=== PATIENT | male | born 1945 | race Two or more races ===

== ENCOUNTER 2020-08-15 18:18 | Emergency (ER) | payer MEDICARE ==
[~2020-08-15] VITALS: Ht 172.7 cm; Wt 83.9 kg
[~2020-08-15 18:18] MED LIST: ALPR0.5T8 PO; ASPI-610 PO; ENOX80DI SQ; FINA5TAB3 PO; LOSA-22 PO; [UNRECOGNIZED DRUG - REMARK]
--- NOTE | 2020-08-15 18:20 | NUR ---
pt walked into er co " being drunk", pt took tequilla x 4 days, pt very emotional, crying, pt denies any cp or sob at this time.
[2020-08-15] MEDS ORDERED: IV NORMAL SALINE 1000 ML BAG IV ONE ×2 (18:30→22:00)
[2020-08-15] MEDS ORDERED: FOLIC ACID 1 MG in IV DEXTROSE 5% 50 ML IV SCH (18:45)
[2020-08-15] MEDS ORDERED: THIAMINE HCL INJ 100 MG in IV DEXTROSE 5% 50 ML IV SCH (18:45)
[2020-08-15] MEDS ORDERED: THIAMINE HCL 200 MG/2 ML VIAL ONE (18:46)
[2020-08-15] MEDS ORDERED: FOLIC ACID 5 MG/ML VIAL IV ONE (18:47)
[2020-08-15 18:54] LABS: BASOPHILS # (AUTO) 0.1 K/uL (0.0-8.0)
[2020-08-15 18:58] LABS: BASOPHILS % (AUTO) 0.6 % (0.0-2.0); EOSINOPHILS # (AUTO) 0.1 K/uL (0.0-0.7); EOSINOPHILS % (AUTO) 0.4 % (0.0-7.0); HEMOGLOBIN 17.4 g/dL (12.5-16.3); LYMPHOCYTES # (AUTO) 8.9 K/uL (20.0-40.0); LYMPHOCYTES % (AUTO) 68.5 % (20.5-51.5); MEAN CORPUSCULAR HEMOGLOBIN 29.8 uug (23.8-33.4); MEAN CORPUSCULAR HGB CONC 34 g/dL (32.5-36.3); MEAN CORPUSCULAR VOLUME 88.9 fL (73.0-96.2); MONOCYTES # (AUTO) 1.4 K/uL (2.0-10.0); MONOCYTES % (AUTO) 10.7 % (0.0-11.0); NEUTROPHILS # (AUTO) 2.6 K/uL (1.8-8.9); NEUTROPHILS % (AUTO) 19.8 % (38.5-71.5); PLATELET COUNT (AUTO) 165 K/uL (152-348); RED BLOOD CELL COUNT(AUTO) 5.84 MIL/uL (4.06-5.63)
[2020-08-15 19:01] LABS: CARBON DIOXIDE 19 mmol/L (21-32); CHLORIDE 109 mmol/L (98-107); ETHANOL 278 MG/DL (0-0); GLUCOSE 132 mg/dL (74-106); POTASSIUM 3.2 mmol/L (3.5-5.1); UREA NITROGEN, BLOOD 21 mg/dL (7-18)
[2020-08-15 19:07] LABS: ALANINE AMINOTRANSFERASE 23 U/L (16-63); ALKALINE PHOSPHATASE 84 U/L (50-136); ASPARTATE AMINOTRANSFERASE 24 U/L (15-37); BILIRUBIN,DIRECT 0.1 mg/dL (0.0-0.2); BILIRUBIN,TOTAL 0.3 mg/dL (0.2-1.0); TOTAL PROTEIN, SERUM 7.6 g/dL (6.4-8.2)
[2020-08-15 19:08] LABS: ACETAMINOPHEN < 2.0 ug/mL (10-30)
[2020-08-15] MEDS ORDERED: MAG HYDROX/AL HYDROX/SIMETH 30 ML LIQUID UDC PO ONE (19:30)
[2020-08-15] MEDS ORDERED: IV D5 1/2 NS 1000 ML 1,000 ML IV ONE (19:30)
[2020-08-15] MEDS ORDERED: LORAZEPAM 2 MG/1 ML VIAL IV ONE ×2 (19:30→20:45)
[2020-08-15 19:51] LABS: *BILIRUBIN,URIN NEGATIVE (NEGATIVE); *BLOOD, URINE 1+ (NEGATIVE); *CLARITY,URINE CLEAR (CLEAR); *COLOR,URINE YELLOW (YELLOW); *KETONES,URINE 1+ (NEGATIVE); *UROBILINOGEN,URINE 0.2 E.U./dl (NORMAL); LEUKOCYTE ESTERASE ,URINE NEGATIVE (NEGATIVE); NITRITE, URINE NEGATIVE (NEGATIVE); UGLUCOSE NEGATIVE (NEGATIVE)
[2020-08-15] MEDS ORDERED: MAG HYDROX/AL HYDROX/SIMETH 30 ML LIQUID UDC ONE (19:54)
[2020-08-15] MEDS ORDERED: LORAZEPAM 2 MG/1 ML VIAL ONE ×2 (19:54→20:53)
[2020-08-15 20:04] LABS: BACTERIA,URINE NONE SEEN /HPF (NONE SEEN); SQUAMOUS EPITHELIAL CELL,UR FEW /HPF (NONE SEEN); WBC,URINE 0-3 /HPF (0-3)
[2020-08-15 20:11] LABS: *AMPHETAMINE, URINE NEGATIVE (NEGATIVE); *CANNABINOID, URINE NEGATIVE (NEGATIVE); *COCCAINE, URINE NEGATIVE (NEGATIVE); *OPIATE, URINE NEGATIVE (NEGATIVE); *PHENCYCLIDINE SCREEN,URINE NEGATIVE (NEGATIVE)
[2020-08-15] MEDS ORDERED: POTASSIUM CHLORIDE 20 MEQ TAB.PRT.SR PO ONE (20:45)
[2020-08-15] MEDS ORDERED: POTASSIUM CHLORIDE 20 MEQ TAB.PRT.SR ONE (20:53)
[2020-08-15] MEDS ORDERED: TDAP DIPH,PERTUSS,TET VAC/PF 0.5 ML DISP.SYRIN IM ONE ×2 (21:45→22:25)
--- NOTE | 2020-08-15 21:45 | NUR ---
Pt found on floor, assisted patient to bed with Hamlet Alanis RN, patient is awake, able to speak, has laceration on left eyebrow and hematoma on left forehead. MD made aware. Head CT ordered.
--- NOTE | 2020-08-15 21:55 | NUR ---
Pt out of ER for CT.
--- NOTE | 2020-08-15 22:10 | NUR ---
Patient back to ER from CT.
--- NOTE | 2020-08-15 23:06 | NUR ---
Patient does not wish to proceed with medical care recommended by Dr. Leyva. Patient given information related to possible complications, up to and including , which could occur as a result of leaving the hospital at this time. Patient verbalizes understanding of risks involved due to leaving against medical advice. Patient has signed AMA form.
[2020-08-15 23:08] VITALS: BP 139/68
== END 2020-08-15 23:09 | disposition left against medical advice (07) ==
LOC: ER 18:21
DX: F10.129 Alcohol abuse with intoxication, unspecified (principal); Y90.8 Blood alcohol level of 240 mg/100 ml or more; E87.2 Acidosis; S00.212A Abrasion of left eyelid and periocular area, initial encounter; S00.83XA Contusion of other part of head, initial encounter; W06.XXXA Fall from bed, initial encounter; Y93.89 Activity, other specified; Y92.230 Patient room in hospital as the place of occurrence of the external cause; R00.0 Tachycardia, unspecified; E87.6 Hypokalemia; D72.829 Elevated white blood cell count, unspecified; Z88.2 Allergy status to sulfonamides; E78.5 Hyperlipidemia, unspecified; I10 Essential (primary) hypertension; I25.2 Old myocardial infarction; I25.10 Atherosclerotic heart disease of native coronary artery without angina pectoris; Z95.5 Presence of coronary angioplasty implant and graft; N40.0 Benign prostatic hyperplasia without lower urinary tract symptoms; Z72.0 Tobacco use
CPT/HCPCS: 36415; 70450; 71045; 80048; 80076; 80299; 80307; 80320; 81001; 83605 ×2; 83690; 84484; 85025; 87040; 90471; 90715; 93005; 96361; 96365; 96368; 96375; 96376; 99285; J2060 ×2; J3411; J3490 ×3; 70030-TC; A4663; G0480; J7030

== ENCOUNTER 2020-11-10 21:31 | Emergency (ER) | payer MEDICARE, BC ==
[~2020-11-10] VITALS: Ht 182.9 cm; Wt 81.6 kg
--- NOTE | 2020-11-10 21:50 | NUR ---
Patient walked in with ETOH, patient is A/O x3, no SOB or labored breathing. Clear speech, able to follow commands, makes needs verbally known. No c/o GOMEZ. Patient stated he has been drinking for the past 4 days, Hx of drinking and stated, "I feel drunk". Pt ambulatory, steady gait. No SI/HI. Denies any symptoms no n/v.
--- NOTE | 2020-11-10 21:50 | NUR ---
Dr. Andrade at bedside for MSE
--- NOTE | 2020-11-10 22:12 | NUR ---
Breann miller in EDM - 11/10/20 at 2233 by LEYDA Patient discharged to home in stable condition. Written and verbal after care instructions given. Patient verbalizes understanding of instructions. Stressed follow up or return to ER for worsening s/s. Steady gait.
--- NOTE | 2020-11-10 23:14 | NUR ---
Patient discharged to home in stable condition. Written and verbal after care instructions given. Patient verbalizes understanding of instructions. Stressed follow up or return to ER for worsening s/s. Steady gait, picked up by son.
[2020-11-10 23:15] VITALS: BP 132/78
== END 2020-11-10 23:18 | disposition home or self-care (01) ==
LOC: ER 21:36
DX: Z75.3 Unavailability and inaccessibility of health-care facilities (principal)
CPT/HCPCS: A4663

== ENCOUNTER 2020-11-11 20:09 | Emergency (ER) | payer MEDICARE, BC ==
[~2020-11-11] VITALS: Ht 172.7 cm; Wt 83.9 kg
[2020-11-11] MEDS ORDERED: IV NORMAL SALINE 1000 ML BAG IV ONE ×2 (21:00→23:45)
[2020-11-11] MEDS ORDERED: PROCHLORPERAZINE EDISYLATE 10 MG/2 ML VIAL IV ONE (21:00)
[2020-11-11 21:22] LABS: BASOPHILS % (AUTO) 0.3 % (0.0-2.0); HEMATOCRIT 50.2 % (36.7-47.1); HEMOGLOBIN 17.1 g/dL (12.5-16.3); LYMPHOCYTES # (AUTO) 1.2 K/uL (20.0-40.0); LYMPHOCYTES % (AUTO) 11.9 % (20.5-51.5); MEAN CORPUSCULAR HEMOGLOBIN 30.1 uug (23.8-33.4); MEAN CORPUSCULAR HGB CONC 34 g/dL (32.5-36.3); MEAN CORPUSCULAR VOLUME 88.5 fL (73.0-96.2); MONOCYTES # (AUTO) 0.9 K/uL (2.0-10.0); NEUTROPHILS # (AUTO) 7.9 K/uL (1.8-8.9); NEUTROPHILS % (AUTO) 78.8 % (38.5-71.5); PLATELET COUNT (AUTO) 181 K/uL (152-348); RED BLOOD CELL COUNT(AUTO) 5.68 MIL/uL (4.06-5.63); WHITE BLOOD COUNT (AUTO) 10.1 K/uL (3.6-10.2)
[2020-11-11 21:27] LABS: CARBON DIOXIDE 22 mmol/L (21-32); CHLORIDE 100 mmol/L (98-107); CREATININE 1.6 mg/dL (0.6-1.3); GLUCOSE 170 mg/dL (74-106); POTASSIUM 3.9 mmol/L (3.5-5.1); UREA NITROGEN, BLOOD 14 mg/dL (7-18)
[2020-11-11 21:32] LABS: ALANINE AMINOTRANSFERASE 53 U/L (16-63); ALKALINE PHOSPHATASE 83 U/L (50-136); ASPARTATE AMINOTRANSFERASE 37 U/L (15-37); BILIRUBIN,DIRECT 0.2 mg/dL (0.0-0.2); BILIRUBIN,TOTAL 0.8 mg/dL (0.2-1.0); ETHANOL < 3 MG/DL (0-0); LIPASE 60 U/L (73-393)
[2020-11-11] MEDS ORDERED: PROCHLORPERAZINE EDISYLATE 10 MG/2 ML VIAL ONE ×2 (21:37→23:56)
[2020-11-11] MEDS ORDERED: IV NS 1000 ML 1,000 ML IV ONE (22:15)
--- NOTE | 2020-11-11 22:53 | NUR ---
Patient states feeling weak, is alert and orientated, requested to have the temperature of the room set higher. Checked oral temp to be 98.1 prior to changing temp.
[2020-11-11] MEDS ORDERED: PROCHLORPERAZINE EDISYLATE 10 MG/2 ML VIAL IM ONE (23:45)
--- NOTE | 2020-11-12 00:40 | NUR ---
Patient requested to use the restroom. Patient cooperative and assisted to restroom.
--- NOTE | 2020-11-12 01:30 | NUR ---
Patient sleeping on bed, eyes closed. No acute distress noted.
[2020-11-12] MEDS ORDERED: PROC10TA29 PO (01:43)
[2020-11-12] MEDS ORDERED: PROC25SU3 RC (01:44)
--- NOTE | 2020-11-12 02:40 | NUR ---
Patient complaining of a headache and requesting medication for it. MD Orozco made aware.
[2020-11-12] MEDS ORDERED: OXYCODONE/APAP 5-325 MG TABLET PO ONE (02:45)
[2020-11-12] MEDS ORDERED: OXYCODONE/APAP 5-325 MG TABLET ONE (02:48)
[2020-11-12 03:05] VITALS: BP 143/72
--- NOTE | 2020-11-12 03:05 | NUR ---
Patient discharged to home in stable condition. Written and verbal after care instructions given. Patient verbalizes understanding of instructions. Stressed follow up or return to ER for worsening s/s. Patient ambulates with steady gait, V/S stable, received paper Rx, received copy of labs, advised to not drive. Patient was discharged to the care of his son Vitor Cardoso. Addendum: 11/12/20 at 0313 by MARGARITA IV removed from patient's R AC
[2020-11-12] MEDS ORDERED: IV NS 1000 ML 1,000 ML IV ONE (23:15)
== END 2020-11-12 03:05 | disposition home or self-care (01) ==
LOC: ER 20:09
DX: R11.2 Nausea with vomiting, unspecified (principal); E86.0 Dehydration; R00.0 Tachycardia, unspecified; E78.5 Hyperlipidemia, unspecified; N40.0 Benign prostatic hyperplasia without lower urinary tract symptoms; Z88.0 Allergy status to penicillin; I25.2 Old myocardial infarction; I10 Essential (primary) hypertension; I25.10 Atherosclerotic heart disease of native coronary artery without angina pectoris; Z79.82 Long term (current) use of aspirin; Z79.899 Other long term (current) drug therapy; F41.9 Anxiety disorder, unspecified; F10.10 Alcohol abuse, uncomplicated; Y90.0 Blood alcohol level of less than 20 mg/100 ml
CPT/HCPCS: 36415; 80048; 80076; 80320; 83690; 85025; 96361; 96374; 96376; 99284; J0780 ×2; A4663; G0480; J7030

== ENCOUNTER 2023-08-18 09:04 | Inpatient (IN) | payer MEDICARE, BC ==
[~2023-08-18] VITALS: Ht 170.2 cm; Wt 81.6 kg
[~2023-08-18 09:04] MED LIST changes: +PROC10TA29 PO; +PROC25SU3 RC
[2023-08-18] MEDS ORDERED: CLON0.1T PO (09:26)
[2023-08-18] MEDS ORDERED: LOSA50TA39 PO (09:26)
[2023-08-18] MEDS ORDERED: METO-358 PO (09:26)
[2023-08-18] MEDS ORDERED: FINA5TAB11 PO (09:26)
[2023-08-18] MEDS ORDERED: AMLO-212 PO (09:26)
[2023-08-18] MEDS ORDERED: ATOR40TA PO (09:26)
[2023-08-18] MEDS ORDERED: ASPI81TA31 PO (09:26)
[2023-08-18 09:55] LABS: BASOPHILS # (AUTO) 0.1 K/UL (0.0-0.2); BASOPHILS % (AUTO) 1.5 % (0.0-2.0); EOSINOPHILS # (AUTO) 1.3 K/uL (0.0-0.7); EOSINOPHILS % (AUTO) 15.3 % (0.0-7.0); HEMATOCRIT 46.3 % (36.7-47.1); LYMPHOCYTES # (AUTO) 1.8 K/uL (0.8-4.8); LYMPHOCYTES % (AUTO) 21.2 % (20.5-51.5); MEAN CORPUSCULAR HEMOGLOBIN 30.4 uug (23.8-33.4); MEAN CORPUSCULAR HGB CONC 35 g/dL (32.5-36.3); MEAN CORPUSCULAR VOLUME 87.9 fL (73.0-96.2); MONOCYTES # (AUTO) 0.7 K/uL (0.1-1.30); MONOCYTES % (AUTO) 8.6 % (0.0-11.0); NEUTROPHILS # (AUTO) 4.5 K/uL (1.8-8.9); NEUTROPHILS % (AUTO) 53.4 % (38.5-71.5); PLATELET COUNT (AUTO) 212 K/uL (152-348); RED BLOOD CELL COUNT(AUTO) 5.26 MIL/uL (4.06-5.63); RED CELL DISTRIBUTION WIDTH 13.1 % (12.1-16.2); WHITE BLOOD COUNT (AUTO) 8.5 K/uL (3.6-10.2)
[2023-08-18] MEDS ORDERED: ONDANSETRON 4 MG/2 ML VIAL ONE ×2 (09:58→18:32)
[2023-08-18] MEDS ORDERED: MORPHINE SULFATE 4 MG/1 ML DISP.SYRIN ONE ×2 (09:59→18:32)
[2023-08-18] MEDS: MORPHINE SULFATE 2 MG/1 ML DISP.SYRIN IV ONE (10:01)
[2023-08-18] MEDS: IV NORMAL SALINE 1000 ML BAG IV ONE (10:02)
[2023-08-18] MEDS: ONDANSETRON 4 MG/2 ML VIAL IV ONE ×2 (10:02→18:38)
[2023-08-18 10:19] LABS: ETHANOL < 3 MG/DL (0-10)
[2023-08-18 10:25] LABS: ALANINE AMINOTRANSFERASE 13 U/L (16-63); ALBUMIN 3.9 g/dL (3.4-5.0); ALKALINE PHOSPHATASE 68 U/L (50-136); ASPARTATE AMINOTRANSFERASE 12 U/L (15-37); BILIRUBIN,DIRECT 0.2 mg/dL (0.0-0.2); BILIRUBIN,TOTAL 0.6 mg/dL (0.2-1.0); CARBON DIOXIDE 27 mmol/L (21-32); CHLORIDE 100 mmol/L (98-107); CREATININE 2.2 mg/dL (0.6-1.3); GLUCOSE 158 mg/dL (74-106); LIPASE 27 U/L (16-77); POTASSIUM 3.2 mmol/L (3.5-5.1); SODIUM SERUM 139 mmol/L (136-145); TOTAL PROTEIN, SERUM 7.8 g/dL (6.4-8.2); UREA NITROGEN, BLOOD 21 mg/dL (7-18)
[2023-08-18 11:11] LABS: DIFFERENTIAL COMMENT 1
[2023-08-18] MEDS ORDERED: METOCLOPRAMIDE HCL 10 MG/2 ML VIAL ONE (12:29)
[2023-08-18] MEDS: METOCLOPRAMIDE HCL 10 MG/2 ML VIAL IV ONE (12:31)
[2023-08-18 12:35] LABS: *BILIRUBIN,URIN NEGATIVE (NEGATIVE); *BLOOD, URINE 2+ (NEGATIVE); *CLARITY,URINE CLEAR (CLEAR); *COLOR,URINE YELLOW (YELLOW); *KETONES,URINE 1+ (NEGATIVE); *PROTEIN,URINE 2+ (NEGATIVE); *UROBILINOGEN,URINE 0.2 E.U./dl (NORMAL); LEUKOCYTE ESTERASE ,URINE NEGATIVE (NEGATIVE); NITRITE, URINE NEGATIVE (NEGATIVE); UGLUCOSE NEGATIVE (NEGATIVE)
[2023-08-18 13:00] LABS: BACTERIA,URINE FEW /HPF (NONE SEEN)
[2023-08-18 13:01] LABS: SQUAMOUS EPITHELIAL CELL,UR MODERATE /HPF (NONE SEEN); WBC,URINE 0-3 /HPF (0-3)
[2023-08-18] MEDS ORDERED: ONDANSETRON 4 MG/2 ML VIAL IV PRN (15:00)
[2023-08-18] MEDS: NICOTINE 21 MG/24HR PATCH TD SCH (15:08)
[2023-08-18] MEDS ORDERED: DIATR MEGLU/DIATRIZOATE SODIUM 30 ML BOTTLE ONE (15:42)
[2023-08-18] MEDS: MORPHINE SULFATE 4 MG/1 ML DISP.SYRIN IV ONE (18:37)
[2023-08-18] MEDS ORDERED: PANTOPRAZOLE SODIUM 40 MG VIAL ONE (20:12)
[2023-08-18] MEDS: PANTOPRAZOLE SODIUM 40 MG VIAL IV SCH (20:16)
[2023-08-18] MEDS ORDERED: ACETAMINOPHEN 325 MG TABLET ONE (22:06)
[2023-08-18] MEDS: ACETAMINOPHEN 325 MG TABLET PO PRN (22:09)
[2023-08-18 22:45] VITALS: BP 172/89; TEMP 98; O2SAT 95
[2023-08-19] MEDS: MORPHINE SULFATE 2 MG/1 ML DISP.SYRIN IV PRN (00:49)
[2023-08-19 01:08] VITALS: BP 149/71; TEMP 98.1; O2SAT 95
[2023-08-19] MEDS: TRAZODONE 100 MG TABLET PO SCH (01:40)
[2023-08-19] MEDS: HEPARIN SODIUM,PORCINE 5,000 UNITS/ML VIAL SQ SCH (01:44)
[2023-08-19] MEDS: IV NS 1000 ML 1,000 ML IV PRN (02:46)
[2023-08-19 04:15] VITALS: BP 140/70; TEMP 97.4; O2SAT 95
[2023-08-19 07:06] LABS: BASOPHILS % (AUTO) 0.2 % (0.0-2.0); HEMATOCRIT 39.7 % (36.7-47.1); HEMOGLOBIN 13.7 g/dL (12.5-16.3); LYMPHOCYTES # (AUTO) 2.7 K/uL (0.8-4.8); LYMPHOCYTES % (AUTO) 36.6 % (20.5-51.5); MEAN CORPUSCULAR HEMOGLOBIN 30.4 uug (23.8-33.4); MEAN CORPUSCULAR HGB CONC 34 g/dL (32.5-36.3); MEAN CORPUSCULAR VOLUME 88.5 fL (73.0-96.2); MONOCYTES % (AUTO) 13.8 % (0.0-11.0); NEUTROPHILS # (AUTO) 3.7 K/uL (1.8-8.9); NEUTROPHILS % (AUTO) 49.4 % (38.5-71.5); PLATELET COUNT (AUTO) 163 K/uL (152-348); RED BLOOD CELL COUNT(AUTO) 4.49 MIL/uL (4.06-5.63); RED CELL DISTRIBUTION WIDTH 13.1 % (12.1-16.2); WHITE BLOOD COUNT (AUTO) 7.4 K/uL (3.6-10.2)
[2023-08-19 07:18] LABS: CALCIUM 8.2 mg/dL (8.5-10.1); CARBON DIOXIDE 29 mmol/L (21-32); CHLORIDE 106 mmol/L (98-107); CHOLESTEROL 111 mg/dL (<200); CREATININE 1.6 mg/dL (0.6-1.3); GLUCOSE 111 mg/dL (74-106); HDL CHOLESTEROL 37 mg/dL (40-60); MAGNESIUM 2.1 mg/dL (1.8-2.4); PHOSPHOROUS 3.4 mg/dL (2.5-4.9); POTASSIUM 3.6 mmol/L (3.5-5.1); SODIUM SERUM 142 mmol/L (136-145); TRIGLYCERIDES 96 MG/DL (30-150); UREA NITROGEN, BLOOD 12 mg/dL (7-18)
[2023-08-19 07:21] LABS: DIFFERENTIAL COMMENT 1
[2023-08-19 07:36] VITALS: BP 126/59; TEMP 98.3; O2SAT 96
[2023-08-19 11:34] VITALS: BP 122/62; TEMP 98.1; O2SAT 94
[2023-08-19 15:47] VITALS: BP 132/53; TEMP 98.3; O2SAT 96
[2023-08-19 20:00] VITALS: BP 140/60; TEMP 98.4; O2SAT 95
[2023-08-20] MEDS: ZOLPIDEM 5 MG TABLET PO PRN (00:20)
[2023-08-20 06:31] VITALS: BP 142/56; TEMP 98.1; O2SAT 96
[2023-08-20 07:04] LABS: BASOPHILS % (AUTO) 0.1 % (0.0-2.0); EOSINOPHILS % (AUTO) 0.2 % (0.0-7.0); HEMATOCRIT 37.4 % (36.7-47.1); HEMOGLOBIN 12.9 g/dL (12.5-16.3); LYMPHOCYTES # (AUTO) 2.7 K/uL (0.8-4.8); LYMPHOCYTES % (AUTO) 60.1 % (20.5-51.5); MEAN CORPUSCULAR HEMOGLOBIN 30.3 uug (23.8-33.4); MEAN CORPUSCULAR HGB CONC 35 g/dL (32.5-36.3); MEAN CORPUSCULAR VOLUME 87.6 fL (73.0-96.2); MONOCYTES # (AUTO) 0.6 K/uL (0.1-1.30); NEUTROPHILS # (AUTO) 1.1 K/uL (1.8-8.9); NEUTROPHILS % (AUTO) 25.6 % (38.5-71.5); PLATELET COUNT (AUTO) 149 K/uL (152-348); RED BLOOD CELL COUNT(AUTO) 4.27 MIL/uL (4.06-5.63); RED CELL DISTRIBUTION WIDTH 12.7 % (12.1-16.2); WHITE BLOOD COUNT (AUTO) 4.5 K/uL (3.6-10.2)
[2023-08-20 07:13] LABS: CALCIUM 8.3 mg/dL (8.5-10.1); CARBON DIOXIDE 31 mmol/L (21-32); CHLORIDE 106 mmol/L (98-107); CREATININE 1.3 mg/dL (0.6-1.3); GLUCOSE 95 mg/dL (74-106); PHOSPHOROUS 3.2 mg/dL (2.5-4.9); POTASSIUM 3.3 mmol/L (3.5-5.1); SODIUM SERUM 142 mmol/L (136-145); UREA NITROGEN, BLOOD 10 mg/dL (7-18)
[2023-08-20 07:22] LABS: DIFFERENTIAL COMMENT 1
[2023-08-20] MEDS: POTASSIUM CHLORIDE 20 MEQ TAB.PRT.SR PO ONE (09:38)
== END 2023-08-20 10:30 | disposition home or self-care (01) | DRG 388 ==
LOC: ER 09:06 → TELE3 22:06 → MEDSURG3 08-19 14:05
PROVIDERS: ADMIT Nurse Practitioner Acute Care; ATTEND Nurse Practitioner Acute Care
DX: K56.601 Complete intestinal obstruction, unspecified as to cause (principal); I21.A1 Myocardial infarction type 2; N17.0 Acute kidney failure with tubular necrosis; D68.59 Other primary thrombophilia; K56.600 Partial intestinal obstruction, unspecified as to cause; E66.9 Obesity, unspecified; Z53.20 Procedure and treatment not carried out because of patient's decision for unspecified reasons; E86.0 Dehydration; E87.6 Hypokalemia; E78.5 Hyperlipidemia, unspecified; I25.2 Old myocardial infarction; N40.0 Benign prostatic hyperplasia without lower urinary tract symptoms; F17.210 Nicotine dependence, cigarettes, uncomplicated; I25.10 Atherosclerotic heart disease of native coronary artery without angina pectoris; I08.1 Rheumatic disorders of both mitral and tricuspid valves; F10.10 Alcohol abuse, uncomplicated; M47.814 Spondylosis without myelopathy or radiculopathy, thoracic region; K44.9 Diaphragmatic hernia without obstruction or gangrene; I10 Essential (primary) hypertension; Z68.28 Body mass index [BMI] 28.0-28.9, adult; Z95.5 Presence of coronary angioplasty implant and graft; Z88.2 Allergy status to sulfonamides; Z79.82 Long term (current) use of aspirin
CPT/HCPCS: 36415; 71045; 74018; 74250; 83605; 83690; 83735; 84100; 84484; 85025; 85730; 87040; 93005; 93307; C9113; G0378; G0480; J1644; J2270; J2405; J2765; J7040; Q9963

== ENCOUNTER 2024-02-07 18:05 | Emergency (ER) | payer MEDICARE, BC ==
[~2024-02-07] VITALS: Ht 170.2 cm; Wt 68.9 kg
[~2024-02-07 18:05] MED LIST changes: -ALPR0.5T8 PO; +AMLO-212 PO; -ASPI-610 PO; +ASPI81TA31 PO; +ATOR40TA PO; +CLON0.1T PO; -ENOX80DI SQ; +FINA5TAB11 PO; -FINA5TAB3 PO; -LOSA-22 PO; +LOSA50TA39 PO; +METO-358 PO; -PROC10TA29 PO; -PROC25SU3 RC; -[UNRECOGNIZED DRUG - REMARK]
[2024-02-07 20:30] LABS: BASOPHILS % (AUTO) 0.5 % (0.0-2.0); DIFFERENTIAL COMMENT 1; HEMOGLOBIN 13.2 g/dL (12.5-16.3); LYMPHOCYTES # (AUTO) 1.5 K/uL (0.8-4.8); LYMPHOCYTES % (AUTO) 18.8 % (20.5-51.5); MEAN CORPUSCULAR HEMOGLOBIN 29.6 uug (23.8-33.4); MEAN CORPUSCULAR HGB CONC 34 g/dL (32.5-36.3); MEAN CORPUSCULAR VOLUME 87.5 fL (73.0-96.2); MONOCYTES # (AUTO) 1.3 K/uL (0.1-1.30); NEUTROPHILS % (AUTO) 63.7 % (38.5-71.5); PLATELET COUNT (AUTO) 160 K/uL (152-348); RED BLOOD CELL COUNT(AUTO) 4.45 MIL/uL (4.06-5.63); RED CELL DISTRIBUTION WIDTH 13.4 % (12.1-16.2); WHITE BLOOD COUNT (AUTO) 7.8 K/uL (3.6-10.2)
[2024-02-07 20:37] LABS: CALCIUM 8.8 mg/dL (8.5-10.1); CARBON DIOXIDE 29 mmol/L (21-32); CHLORIDE 101 mmol/L (98-107); CREATININE 1.1 mg/dL (0.6-1.3); GLUCOSE 188 mg/dL (74-106); POTASSIUM 4.1 mmol/L (3.5-5.1); SODIUM SERUM 138 mmol/L (136-145); UREA NITROGEN, BLOOD 12 mg/dL (7-18)
[2024-02-07 20:48] LABS: *BILIRUBIN,URIN NEGATIVE (NEGATIVE); *BLOOD, URINE NEGATIVE (NEGATIVE); *CLARITY,URINE CLEAR (CLEAR); *COLOR,URINE YELLOW (YELLOW); *KETONES,URINE 1+ (NEGATIVE); *PROTEIN,URINE 1+ (NEGATIVE); *UROBILINOGEN,URINE 0.2 E.U./dl (NORMAL); LEUKOCYTE ESTERASE ,URINE NEGATIVE (NEGATIVE); NITRITE, URINE NEGATIVE (NEGATIVE); PH,URINE 5.5 (5.0-8.0); UGLUCOSE NEGATIVE (NEGATIVE)
[2024-02-07 20:49] LABS: ALANINE AMINOTRANSFERASE 15 U/L (16-63); ALBUMIN 3.2 g/dL (3.4-5.0); ALKALINE PHOSPHATASE 53 U/L (50-136); ASPARTATE AMINOTRANSFERASE 9 U/L (15-37); BILIRUBIN,TOTAL 0.6 mg/dL (0.2-1.0); NT-PRO BNP 300 pg/mL (0-125); TOTAL PROTEIN, SERUM 7.3 g/dL (6.4-8.2)
[2024-02-07 21:19] LABS: BACTERIA,URINE NONE SEEN /HPF (NONE SEEN); MUCUS,URINE MODERATE /LPF (0-FEW); RBC,URINE NONE SEEN /HPF (0-3); SQUAMOUS EPITHELIAL CELL,UR NONE SEEN /HPF (NONE SEEN); WBC,URINE NONE SEEN /HPF (0-3)
[2024-02-07] MEDS ORDERED: AZIT250T PO (22:42)
[2024-02-07 22:47] VITALS: BP 128/62; TEMP 98.5; O2SAT 98
[2024-02-07 23:05] LABS: LYMPHOCYTES % (MANUAL) 17 % (20-40); MONOCYTES % (MANUAL) 11 % (2-10); NEUTROPHILS % (MANUAL) 72 % (42-75); PLATELET ESTIMATE ADEQUATE
== END 2024-02-07 22:48 | disposition home or self-care (01) ==
LOC: ER 18:06
DX: J20.9 Acute bronchitis, unspecified (principal); Z86.73 Personal history of transient ischemic attack (TIA), and cerebral infarction without residual deficits; Z98.890 Other specified postprocedural states; Z79.899 Other long term (current) drug therapy; Z79.82 Long term (current) use of aspirin; Z20.822 Contact with and (suspected) exposure to COVID-19; Z88.2 Allergy status to sulfonamides
CPT/HCPCS: 36415; 70030-TC; 71045; 83605; 84484; 85025; 86403; 87070; A4606; A4663

== ENCOUNTER 2024-10-17 20:49 | Emergency (ER) | payer MEDICARE, BC ==
[~2024-10-17] VITALS: Ht 170.2 cm; Wt 72.6 kg
[~2024-10-17 20:49] MED LIST changes: +AZIT250T PO
[2024-10-17] MEDS: IV NS 1000 ML 1,000 ML IV ONE (21:41)
[2024-10-17 21:53] LABS: CARBON DIOXIDE 28 mmol/L (21-32); CHLORIDE 106 mmol/L (98-107); CREATININE 0.9 mg/dL (0.6-1.3); GLUCOSE 110 mg/dL (74-106); POTASSIUM 3.9 mmol/L (3.5-5.1); SODIUM SERUM 146 mmol/L (136-145); UREA NITROGEN, BLOOD 14 mg/dL (7-18)
[2024-10-17 21:54] LABS: BASOPHILS % (AUTO) 0.4 % (0.0-2.0); EOSINOPHILS % (AUTO) 0.1 % (0.0-7.0); HEMATOCRIT 44.8 % (36.7-47.1); HEMOGLOBIN 14.8 g/dL (12.5-16.3); LYMPHOCYTES # (AUTO) 4.2 K/uL (0.8-4.8); LYMPHOCYTES % (AUTO) 67.2 % (20.5-51.5); MEAN CORPUSCULAR HEMOGLOBIN 30.1 uug (23.8-33.4); MEAN CORPUSCULAR HGB CONC 33 g/dL (32.5-36.3); MEAN CORPUSCULAR VOLUME 90.9 fL (73.0-96.2); MONOCYTES # (AUTO) 0.7 K/uL (0.1-1.30); MONOCYTES % (AUTO) 11.4 % (0.0-11.0); NEUTROPHILS # (AUTO) 1.3 K/uL (1.8-8.9); NEUTROPHILS % (AUTO) 20.9 % (38.5-71.5); PLATELET COUNT (AUTO) 153 K/uL (152-348); RED BLOOD CELL COUNT(AUTO) 4.92 MIL/uL (4.06-5.63); RED CELL DISTRIBUTION WIDTH 13.3 % (12.1-16.2); WHITE BLOOD COUNT (AUTO) 6.3 K/uL (3.6-10.2)
[2024-10-17 21:55] LABS: DIFFERENTIAL COMMENT 1
[2024-10-17 21:59] LABS: ETHANOL 190 MG/DL (0-10)
[2024-10-17 22:07] LABS: ALANINE AMINOTRANSFERASE 21 U/L (16-63); ALBUMIN 3.2 g/dL (3.4-5.0); ALKALINE PHOSPHATASE 62 U/L (50-136); ASPARTATE AMINOTRANSFERASE 27 U/L (15-37); BILIRUBIN,TOTAL 0.3 mg/dL (0.2-1.0); MAGNESIUM 1.9 mg/dL (1.8-2.4); NT-PRO BNP 200 pg/mL (0-125); TOTAL PROTEIN, SERUM 6.8 g/dL (6.4-8.2)
[2024-10-17 22:12] LABS: *BILIRUBIN,URIN NEGATIVE (NEGATIVE); *CLARITY,URINE CLEAR (CLEAR); *COLOR,URINE YELLOW (YELLOW); *KETONES,URINE NEGATIVE (NEGATIVE); *PROTEIN,URINE NEGATIVE (NEGATIVE); *UROBILINOGEN,URINE 0.2 E.U./dl (NORMAL); LEUKOCYTE ESTERASE ,URINE NEGATIVE (NEGATIVE); NITRITE, URINE NEGATIVE (NEGATIVE); UGLUCOSE NEGATIVE (NEGATIVE)
[2024-10-17 22:17] LABS: *BLOOD, URINE TRACE (NEGATIVE)
[2024-10-17 22:29] LABS: *AMPHETAMINE, URINE NEGATIVE (NEGATIVE); *BARBITURATE, URINE NEGATIVE (NEGATIVE); *BENZODIAZEPINE, URINE NEGATIVE (NEGATIVE); *CANNABINOID, URINE NEGATIVE (NEGATIVE); *COCCAINE, URINE NEGATIVE (NEGATIVE); *OPIATE, URINE NEGATIVE (NEGATIVE); *PHENCYCLIDINE SCREEN,URINE NEGATIVE (NEGATIVE); FENTANYL, URINE NEGATIVE (NEGATIVE)
[2024-10-17 22:43] LABS: BACTERIA,URINE NONE SEEN /HPF (NONE SEEN); RBC,URINE 0-3 /HPF (0-3); SQUAMOUS EPITHELIAL CELL,UR FEW /HPF (NONE SEEN); WBC,URINE NONE SEEN /HPF (0-3)
[2024-10-17 23:34] VITALS: BP 155/82; TEMP 98.1; O2SAT 99
== END 2024-10-17 23:35 | disposition home or self-care (01) ==
LOC: ER 20:51
DX: F10.129 Alcohol abuse with intoxication, unspecified (principal); E78.5 Hyperlipidemia, unspecified; N40.0 Benign prostatic hyperplasia without lower urinary tract symptoms; F41.9 Anxiety disorder, unspecified; Z79.82 Long term (current) use of aspirin; Z79.899 Other long term (current) drug therapy; Z86.73 Personal history of transient ischemic attack (TIA), and cerebral infarction without residual deficits; Z87.891 Personal history of nicotine dependence; Z88.2 Allergy status to sulfonamides; Y90.6 Blood alcohol level of 120-199 mg/100 ml
CPT/HCPCS: 80053; 81001; 83880; 83735; 85025; 84484; 36415; 71045; 93005; 99285; 96360; 80320; 80307; J7040; A4606; A4663; G0480